=== PATIENT | female | born 1980 | race Caucasian/White ===

== ENCOUNTER → 2024-02-05 07:32 | Outpatient (REF) | payer BC, SELFPAY | LOC: WDC 07:32 | PROVIDERS: ATTENDING PHYSICIAN Advanced Practice Midwife | DX: Z12.31 Encounter for screening mammogram for malignant neoplasm of breast (principal) | CPT/HCPCS: 77063; 77067 ==

== ENCOUNTER → 2025-02-16 08:16 | Outpatient (REF) | payer BC, SELFPAY | LOC: WDC 08:16 | PROVIDERS: ATTENDING PHYSICIAN Advanced Practice Midwife; FAMILY PHYSICIAN Nurse Practitioner | DX: Z12.31 Encounter for screening mammogram for malignant neoplasm of breast (principal) | CPT/HCPCS: 77063; 77067 ==

== ENCOUNTER 2025-02-20 11:24 | Emergency (ER) | payer BC, SELFPAY ==
[2025-02-20 11:26] VITALS: BP 150/71
[2025-02-20 11:39] VITALS: BMI 33.7
--- NOTE | 2025-02-20 11:52 | ED.GENMED ---
History of Present Illness
General
Chief Complaint: Abdominal Pain
Source: patient
Exam Limitations: none
Time Seen by Provider: 02/20/25 11:46
Nursing documentation reviewed up to this point in time: agreed with
History of Present Illness
History of Present Illness:
44-year-old female with history of cholecystectomy 2010, presents with pain in her upper right abdomen that radiates through to her back. The pain began on 4 days ago and has been worsening. The patient initially suspected a muscular issue or
bruised ribs due to recent beach activities 7 & 6 days ago where she was in the waves with her nephew and lifting him over her head to avoid waves. However, given her history of gallbladder removal several years ago and past experiences of gallstone
attacks, she is concerned that it might be related to that area. The patient describes the pain as getting worse and tender to touch, especially aggravated by movement such as driving over bumps. She also reports frequent stomach issues and mentions
constipation alternating with diarrhea, which is typical for her. She denies fever. The patient has been taking ibuprofen once daily over the last few days for the pain but reports it has not helped.
Past History
Past History
ED Past Surgical History: Cholecystectomy
Social History
Tobacco: Non-smoker
Alcohol: None
Personal:
Living: with family
Review of Systems
Review of Systems
Allergies reviewed?: Yes
All Other Systems: ROS reviewed and negative except as documented in HPI and ROS
ABD/GI: Reports constipated; Denies nausea, vomiting or diarrhea
Musculoskeletal: Reports other (pain right lower rib cage)
Skin: Reports no symptoms
Phy Exam
Physical Exam
Physical Exam:
GENERAL: No acute distress. A&Ox3.
CONSTITUTIONAL: Afebrile.
EYES: clear, conjunctivae normal
ENMT: moist mucus membranes, Pharynx nl
RESPIRATORY: Regular respirations, nonlabored, lungs clear.
CARDIOVASCULAR: Regular rate and rhythm, no murmurs, no rubs.
GI: Soft, nontender, benign, no RUQ tenderness. normal BS
MUSCULOSKELETAL: Moves with ease. Well perfused. Patient is tender to compression and palpation over the right anterior lateral lower rib cage. Palpation of this area immediately reproduces her pain
SKIN: Warm, dry, pink
PSYCH: Normal mood and affect. Well kept, interactive and appropriate
NEUROLOGIC: Awake, alert and oriented. No focal neurological deficits
Course
Orders/Labs/Results
Orders:
Orders
02/20/25 11:52
US Abdomen Complete/Upper Urgent
Comment:
Reason For Exam: RUQ and upper mid abd pain, hx cholecystectomy
02/20/25 11:54
Complete Blood Count/With Diff Urgent
Comprehensive Metabolic Panel Urgent
Lipase Urgent
Abnormal Lab Results
02/20/25
11:54
RBC 3.93 L 10^6/uL
(4.20-5.40)
Hct 35.8 L %
(37.0-47.0)
MCH 31.3 H pg
(27.0-31.0)
Absolute Neuts (auto) 7.5 H 10^3/uL
(1.4-6.5)
Neutrophils % 78.9 H %
(42.2-75.2)
Lymphocytes % 14.9 L %
(20.5-51.1)
Chloride 110 H mmol/L
(98-107)
BUN 24 H mg/dl
(7-17)
Alkaline Phosphatase 37 L U/L
(38-126)
02/20/25 11:54
02/20/25 11:54
Vital Signs
Initial and Last Documented VS:
Initial Vital Signs
Temp Pulse Resp BP Pulse Ox
97.5 F 87 18 150/71 99
02/20/25 11:26 02/20/25 11:26 02/20/25 11:26 02/20/25 11:26 02/20/25 11:26
Last Documented Vital Signs
Temp Pulse Resp BP Pulse Ox
97.5 F 87 18 110/64 99
02/20/25 11:26 02/20/25 11:26 02/20/25 12:00 02/20/25 14:00 02/20/25 11:59
MDM/Problems Addressed
Differential Diagnosis Includes:
musculoskeletal rib pain, choledocholithiasis, pancreatitis
MDM/Problems Addressed:
44-year-old female with history of cholecystectomy 2010, presents with pain in her upper right abdomen that radiates through to her back. The pain began on 4 days ago and has been worsening. The patient initially suspected a muscular issue or
bruised ribs due to recent beach activities 7 & 6 days ago where she was in the waves with her nephew and lifting him over her head to avoid waves. However, given her history of gallbladder removal several years ago and past experiences of gallstone
attacks, she is concerned that it might be related to that area. The patient describes the pain as getting worse and tender to touch, especially aggravated by movement such as driving over bumps. She also reports frequent stomach issues and mentions
constipation alternating with diarrhea, which is typical for her. She denies fever. The patient has been taking ibuprofen once daily over the last few days for the pain but reports it has not helped.
1:00 PM:
CBC, CMP with no clinically significant abnormality
Ultrasound is unremarkable
Patient reassured, stable for discharge
This is most likely musculoskeletal rib pain due to her playing in the ocean last weekend.
*Pulse Oximetry
SaO2: 99
Oxygen Mode of Delivery: Room air
Patient hypoxic: not evaluated
*Critical Care Note
Total Time (30-74mins, 75-104mins- exclusive of procedures): Not Applicable
ED Attending Note
-
Portions of this chart may have been created with voice recognition software.� Occasional wrong word or��sound alike� substitutions may have occurred due to the inherent limitations of voice recognition software.
Discharge Plan
Departure
Patient Disposition: Home (Routine Discharge)
Date of Disposition: 02/20/25
Time of Disposition: 13:33
Patient with high blood pressure during this ER visit?: No
Condition: Good
Discharge Problem:
Rib pain on right side
Instructions: Rib injury in adults, Musculoskeletal Pain
Prescriptions:
No Action
PNV no.58-iron bisgly-folic ac [] 1 EACH capsule
1 ea PO DAILY
oxycodone-acetaminophen [Percocet] 1 EACH tablet
1 ea PO PRN PRN (Reason: pain)
ondansetron HCl [Zofran] 8 MG tablet
8 mg PO PRN PRN (Reason: nausea)
hydromorphone 2 MG tablet
2 mg PO Q4HPRN PRN (Reason: pain) Qty: 20 0RF
Referrals:
Nataliya Bojorquez MD [Active] - Next open appointment
Steve Choe PA-C [Family Provider, Family Practice] - As needed
Activity Restrictions/Additional Instructions:
As we discussed, your workup here today shows nothing worrisome.
Your US and blood work are unremarkable.
Ibuprofen 600 mg, with food, every 6 hours as needed for abdominal pain
Interventions
Interventions:
*Risk Screen - Suicide Last Done: 02/20/25 11:26
*General Assessment Last Done: 02/20/25 11:26
*Neglect/Abuse Screening Last Done: 02/20/25 11:26
*ED- Fall Risk Assessment Last Done: 02/20/25 11:40
*ED COVID-19 Vaccine History Last Done: 02/20/25 11:40
*Nursing Disposition Last Done: 02/20/25 14:20
DC-Zknlzl-Cepboosdgi Assessment Last Done: 02/20/25 11:50
Discharge Date and Time
Discharge Date/Time: 02/20/25 14:20
Print Language: BULGARIAN
[2025-02-20 12:04] LABS: Hematocrit 35.8 % (37.0-47.0); Hemoglobin 12.3 g/dL (12.0-16.0); Mean Corp Hgb Conc. 34.4 g/dL (33.0-37.0); Mean Corpuscular Volume 91.1 fL (81.0-99.0); Nucleated Red Blood Cells % 0 %; Platelet Count 255 10^3/uL (130-400); Red Cell Dist. Width 12.5 % (11.5-14.5)
[2025-02-20 12:31] LABS: ALT (SGPT) 15 U/L (0-35); AST (SGOT) 21 U/L (14-36); Albumin 3.9 g/dl (3.5-5.0); Alkaline Phosphatase 37 U/L (38-126); Blood Urea Nitrogen 24 mg/dl (7-17); Calcium 8.9 mg/dl (8.4-10.2); Carbon Dioxide 25 mmol/L (22-30); Chloride 110 mmol/L (98-107); Estimated Creatinine Clearance > 125 ml/min; Glucose 94 mg/dl (70-99); Lipase 95 U/L (23-300); Potassium 4.4 mmol/L (3.5-5.1); Sodium 138 mmol/L (135-145); Total Protein 6.5 g/dl (6.3-8.2); eGFR > 60.00
[2025-02-20 14:00] VITALS: BP 110/64
== END 2025-02-20 14:20 | disposition home or self-care (01) ==
LOC: EMR 11:24
PROVIDERS: Registered Nurse; EMERGENCY PHYSICIAN Emergency Medicine; FAMILY PHYSICIAN Physician Assistant Medical
DX: R07.81 Pleurodynia (principal); R10.11 Right upper quadrant pain; Z90.49 Acquired absence of other specified parts of digestive tract
CPT/HCPCS: 99284; 76700; 80053; 83690; 85025